=== PATIENT | female | born 1955 | race Caucasian/White ===

== ENCOUNTER 2017-03-22 13:32 | Day surgery (SDC) | payer OTHER ==
[2017-03-22 14:39] VITALS: BMI 21.9
[2017-03-22] MEDS ORDERED: PROPOFOL 20 ML ONE ×2 (14:43)
[2017-03-22 15:53] VITALS: TEMP 97.4
[2017-03-22 17:03] VITALS: BP 102/51; PULSE 56
== END 2017-03-22 17:19 | disposition home or self-care (01) ==
LOC: JASU-ENDO 13:32
PROVIDERS: ATTEND Internal Medicine Gastroenterology
PROC: 0DJD8ZZ Inspection of Lower Intestinal Tract, Via Natural or Artificial Opening Endoscopic (ICD-10-PCS; principal; 2017-03-22 14:30)
DX: Z12.11 Encounter for screening for malignant neoplasm of colon (principal); Z86.010 Personal history of colon polyps; K63.89 Other specified diseases of intestine